=== PATIENT | female | born 1975 ===

== ENCOUNTER 2017-10-10 09:10 | Emergency (ER) | payer OTHER ==
[2017-10-10 09:13] VITALS: BMI 27.1
[2017-10-10 09:14] VITALS: BP 137/72; PULSE 89; RESP 20; TEMP 98.4; O2SAT 100
[2017-10-10] MEDS ORDERED: Oxycodone/Acetaminophen 5/325 mg Tab PO ONE (09:43)
--- NOTE | 2017-10-10 10:01 | ED PDOC ---
HPI: Back Time Seen by Provider: 10/10/17 09:24 Chief Complaint (Nursing): Back Pain Chief Complaint (Provider): Back Pain History Per: Patient History/Exam Limitations: no limitations Onset/Duration Of Symptoms: Days (21 days ago) Current Symptoms Are (Timing): Constant Additional Complaint(s): 42 y/o female presents to the ED complaining of constant back and leg pain, onset of 21 days ago. Patient reports of experiencing worsened back and leg pain when walking or doing any kind of twisting of her body, residing on the left side. She also states that when walking the pain radiates from her back down to her left leg. She also states that roughly a year ago she visited a doctor, where she had X-rays done and was diagnosed with scoliosis. 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 Of note, she has been taking Tylenol and Motrin without relief so she stopped taking the them. Patient denies any fever, gait problems, urinary issues, numbness or tingling. Past Medical History Reviewed: Historical Data, Nursing Documentation, Vital Signs Vital Signs: Last Vital Signs Temp 98.4 F 10/10/17 09:12 Pulse 89 10/10/17 09:12 Resp 20 10/10/17 09:12 BP 137/72 10/10/17 09:12 Pulse Ox 100 10/10/17 09:12 - Medical History PMH: Back Problems - Surgical History Other surgeries: Breast Augmentation - Family History Family History: States: Unknown Family Hx - Social History Current smoker - smoking cessation education provided: No Ex-Smoker (has not smoked in the last 12 months): No Alcohol: None Drugs: Denies - Home Medications Home Medications: Ambulatory Orders Medication Instructions Recorded Cyclobenzaprine [Cyclobenzaprine 10 mg PO TID #15 tab 10/10/17 HCl] Methylprednisolone [Medrol Dose 4 mg PO ASDIR #21 mg 10/10/17 Pack (21 tabs)] traMADol [Ultram] 50 mg PO TID PRN #15 tab 10/10/17 - Allergies Allergies/Adverse Reactions: Allergies Allergy/AdvReac Type Severity Reaction Status Date / Time No Known Allergies Allergy Verified 10/10/17 09:26 Review of Systems ROS Statement: Except As Marked, All Systems Reviewed And Found Negative Constitutional: Negative for: Fever Genitourinary Female: Negative for: Dysuria Musculoskeletal: Positive for: Back Pain (left sided), Leg Pain (left) Neurological: Negative for: Numbness Physical Exam - Physical Exam Appears: Positive for: Non-toxic, No Acute Distress Head Exam: Positive for: ATRAUMATIC Skin: Positive for: Normal Color, Warm Eye Exam: Positive for: Normal appearance, EOMI, PERRL Neck: Positive for: Normal, Painless ROM, Supple Cardiovascular/Chest: Positive for: Regular Rate, Rhythm. Negative for: Murmur Respiratory: Positive for: Normal Breath Sounds. Negative for: Respiratory Distress Gastrointestinal/Abdominal: Positive for: Normal Exam, Soft. Negative for: Tenderness Back: Positive for: Normal Inspection, Other (tenderness to left scapula area and left lower back) Extremity: Positive for: Normal ROM. Negative for: Pedal Edema, Deformity Neurologic/Psych: Positive for: Alert, Oriented, Gait (normal). Negative for: Motor/Sensory Deficits - ECG O2 Sat by Pulse Oximetry: 100 (RA) Pulse Ox Interpretation: Normal - Progress Re-evaluation Time: 11:37 Condition: Re-examined, Improved Medical Decision Making Medical Decision Making: Time: --09:42 Impression: --Back Pain Differential: --Musculoskeletal Pain --Left-sided Sciatica Plan: --ED Urine Dip --Cyclobenzaprine 10mg PO --Toradol 30mg IM --Oxycodone 1 tab PO Reassess Patient is significantly improved. Pain is minimal. Stable for discharge. Scribe Attestation: Documented by Loc Chiang acting as a scribe for Diane Forbes MD. Disposition - Clinical Impression Clinical Impression: Back pain, Sciatica - Patient ED Disposition Is Patient to be Admitted: No Doctor Will See Patient In The: Office Counseled Patient/Family Regarding: Studies Performed, Diagnosis, Need For Followup - Disposition Referrals: Oleg Castaneda MD [Staff Provider] - Disposition: Routine/Home Disposition Time: 11:37 Condition: GOOD Additional Instructions: Take your medications as instructed. Follow up with your PCP in 2-3 days. Prescriptions: Cyclobenzaprine [Cyclobenzaprine HCl] 10 mg PO TID #15 tab Methylprednisolone [Medrol Dose Pack (21 tabs)] 4 mg PO ASDIR #21 mg traMADol [Ultram] 50 mg PO TID PRN #15 tab PRN Reason: Pain, Severe (8-10) Instructions: Sciatica (ED), Back Pain (ED) Print Language: AFGHAN
[2017-10-10] MEDS ORDERED: Oxycodone/Acetaminophen 5/325 mg Tab ONE (10:02)
== END 2017-10-10 11:51 | disposition home or self-care (01) ==
LOC: H.ER 09:10
DX: M54.32 Sciatica, left side (principal); M41.9 Scoliosis, unspecified
CPT/HCPCS: 81025; 96372; 99283; J1885